=== PATIENT | female | born 2005 | race Caucasian/White ===

== ENCOUNTER 2024-05-15 04:09 | Emergency (ER) | payer OTHER ==
[~2024-05-15] VITALS: Ht 172.7 cm; Wt 77.1 kg
[2024-05-15] MEDS ORDERED: Amoxicillin/Clavulanate Pota 875 MG TAB PO ONE (04:55)
[2024-05-15] MEDS ORDERED: Ketorolac Tromethamine 30 MG/ML VIAL IM ONE (04:55)
[2024-05-15] MEDS ORDERED: AMOX-CLAV 875-1 EACH PO (04:56)
== END 2024-05-15 05:04 | disposition home or self-care (01) ==
LOC: ED 04:09
DX: H66.91 Otitis media, unspecified, right ear (principal)